=== PATIENT | male | born 1965 ===

== ENCOUNTER 2018-11-13 14:54 | Day surgery (SDC) | payer OTHER ==
[~2018-11-13] VITALS: Ht 175.3 cm; Wt 88.7 kg
[2018-11-13 15:53] VITALS: Ht 175.3 cm; Wt 88.7 kg
[2018-11-13 15:54] VITALS: BP 125/74; PULSE 83; RESP 18
[2018-11-13] MEDS ORDERED: METO-335 PO (16:09)
[2018-11-13] MEDS ORDERED: METF-849 PO (16:09)
[2018-11-13] MEDS ORDERED: ATOR-2 PO (16:09)
[2018-11-13] MEDS ORDERED: TICA90TA PO (16:09)
[2018-11-13] MEDS ORDERED: FLUO10CA26 PO (16:09)
[2018-11-13] MEDS ORDERED: ASPI-817 PO (16:09)
== END 2018-11-13 17:10 | disposition home or self-care (01) ==
LOC: SDS 14:54
PROVIDERS: ATTEND Internal Medicine
DX: R94.31 Abnormal electrocardiogram [ECG] [EKG] (principal); Z53.09 Procedure and treatment not carried out because of other contraindication; E11.9 Type 2 diabetes mellitus without complications; E78.5 Hyperlipidemia, unspecified; E78.2 Mixed hyperlipidemia
CPT/HCPCS: 80048; 82962; 85025; 85610; 93005